=== PATIENT | male | born 1945 | race Caucasian/White ===

== ENCOUNTER → 2017-10-10 | Outpatient (CLI) | payer OTHER ==
--- NOTE | 2017-10-11 17:03 | MRI ---
MRI SPINE LUMBAR WITHOUT CONTRAST CLINICAL HISTORY: 71-year-old male with chronic low back pain. COMPARISON: None. Technique: Multiplanar, multisequence MRI images of the lumbar spine were obtained without the admin istration of contrast. FINDINGS: The most caudad, fully-formed intervertebral disc will be labeled L5-S1 for the purpose of this dictation. Mild straightening of the lumbar lordosis as imaged. Subtle degenerative retrolisthes is L2 on L3. Large Schmorl's node anteriorly inferior endplate L1 and to a lesser degree inferior end plate L2. There is active degeneration with type 1 endplate changes inferiorly at L1. Remaining marro w signal is unremarkable. There is loss of disc space L1-L3 with associated signal loss. Cord signal is normal. The conus medullaris is normal in signal characteristics and morphology and terminates at the L1-2 level. T11-T12: Imaged in the sagittal plane only. Moderate symmetric disc bulge without significant central canal stenosis. Mild right neural foraminal stenosis. T12-L1: Moderate symmetric disc bulge and facet hypertrophy thickened flavum. No central canal or claudia ral foraminal stenosis. L1-L2: Large symmetric disc bulge with moderate to severe facet hypertrophy and thickened flavum. Mil d bilateral neural foraminal stenosis without significant central canal stenosis. L2-L3: Large asymmetric disc bulge with a right foraminal and extra foraminal component. Severe facet hypertrophy and thickened flavum. Central canal assumes a mildly triangular configuration without si gnificant stenosis. Moderate bilateral neural foraminal stenosis with contour deformity along the emily marlee aspect of the exiting L2 nerve roots bilaterally. L3-L4: Large symmetric disc bulge with moderate to severe facet hypertrophy and thickened flavum. No central canal stenosis. Moderate bilateral neural foraminal stenosis with flattening of the dorsal as pect of the exiting L3 nerve roots bilaterally. L4-L5: Large asymmetric disc bulge with a left foraminal component. Severe facet hypertrophy and thic kened flavum. Central canal assumes a triangular configuration and measures 10.7 mm. Moderate bilater al neural foraminal stenosis and severe bilateral subarticular recess stenosis. There is mild flatten ing of the ventral dorsal aspect of the exiting L4 nerve roots bilaterally. There is engagement of th e ventral dorsal aspect with flattening of the transiting left L5 nerve root. L5-S1: Large symmetric disc bulge with moderate facet hypertrophy and thickened flavum. There is flat tening of the ventral aspect of the exiting L5 nerve roots bilaterally. No central canal stenosis or significant neural foraminal stenosis. Paraspinous soft tissues demonstrate incompletely imaged large simple appearing right renal cyst. IMPRESSION: 1. Multilevel disc degeneration and spondyloarthropathy with engagement and flattening of nerve roots at multiple levels with foraminal stenosis. 2. See level by level descriptions above. Reported By:
== END ==
LOC: RAD 13:26
PROVIDERS: ATTEND Orthopaedic Surgery
DX: M51.36 Other intervertebral disc degeneration, lumbar region (principal)
CPT/HCPCS: 72148

== ENCOUNTER 2017-11-26 09:44 | Day surgery (SDC) | payer OTHER ==
--- NOTE | 2017-11-26 11:24 | DR.UPDATE ---
H&P Update History and Physical Update: History and Physical reviewed and patient examined. Changes noted: NO Yes with the following:agree with H&P from dr tinsley. will perform mona
[2017-11-26] MEDS ORDERED: XYLOCAINE 2 % (PLAIN) ONE (11:26)
[2017-11-26] MEDS ORDERED: KENALOG INJ 40 MG IM ONE (11:26)
[2017-11-26] MEDS ORDERED: MARCAINE 0.25% INJ ONE (11:30)
[2017-11-26 12:24] VITALS: BP 148/69
== END 2017-11-26 12:10 | disposition home or self-care (01) | DRG 552 ==
LOC: SURG1 09:44
PROVIDERS: ATTEND Orthopaedic Surgery
PROC: 3E0R3BZ Introduction of Anesthetic Agent into Spinal Canal, Percutaneous Approach (ICD-10-PCS; 2017-11-26)
PROC: 3E0R33Z Introduction of Anti-inflammatory into Spinal Canal, Percutaneous Approach (ICD-10-PCS; principal; 2017-11-26 11:15)
DX: M51.37 Other intervertebral disc degeneration, lumbosacral region (principal)
CPT/HCPCS: 62323; 76000; S0020; J2001; J3301